=== PATIENT | female | born 2000 | race African-American/Black ===

== ENCOUNTER 2021-05-14 11:37 | Emergency (ER) | payer OTHER ==
[~2021-05-14] VITALS: Ht 165.1 cm; Wt 67.4 kg
[2021-05-14] MEDS ORDERED: AFRI0.058 (13:54)
[2021-05-14] MEDS ORDERED: BENZ200C70 PO (13:54)
[2021-05-14 14:07] VITALS: BP 130/69
== END 2021-05-14 14:09 | disposition home or self-care (01) ==
LOC: M ED 11:37
DX: J06.9 Acute upper respiratory infection, unspecified (principal)